=== PATIENT | female | born 1960 | race Caucasian/White ===

== ENCOUNTER 2025-01-07 22:32 | Emergency (ER) | payer MEDICARE, OTHER ==
[2025-01-07] MEDS ORDERED: Pantoprazole 40 MG VIAL ONE (22:44)
[2025-01-07] MEDS ORDERED: Ketorolac Tromethamine 30 MG (1 mL) VIAL ONE (22:44)
[2025-01-07 22:59] LABS: Bicarbonate (HCO3v) 24.6 mmol/L (22.0-28.0); CO2 Tension (PvCO2) 30.1 mmHg (42.0-51.0); Calcium, Ionized 1.21 mmol/L (1.15-1.33); Chloride 105 mmol/L (98-107); Hemoglobin - Calc 11.8 g/dL (12.0-16.0); Potassium 3.2 mmol/L (3.5-5.1); Sodium 141 mmol/L (138-145); T. Carbon Dioxide 25.5 mmol/L (22.0-28.0); vO2 Saturation-calc 70.8 % (60.0-85.0)
[2025-01-07 23:07] LABS: ALT (SGPT) 25 U/L (Less than 34); AST (SGOT) 25 U/L (11-34); Albumin 4.3 g/dL (3.1-4.5); Alkaline Phosphatase 87 U/L (40-110); Anion Gap 18 mmol/L (10-20); BUN (Urea Nitrogen) 26 mg/dL (9.8-20.1); Bilirubin, Total 0.7 mg/dL (0.3-1.2); Calc. Creatinine Clearance 0 mL/min (70-130); Calcium 10.1 mg/dL (7.8-10.44); Carbon Dioxide 23 mmol/L (23-31); Chloride 103 mmol/L (98-107); Globulin 2.6 g/dL (2.4-3.5); Glucose 185 mg/dL (80-115); Lipase 13 U/L (8-78); Potassium 3.3 mmol/L (3.5-5.1); Sodium 141 mmol/L (136-145)
[2025-01-08 00:41] LABS: Glucose, Urine (Dipstick) 500 mg/dL (Negative); Leukocyte Negative (Negative); Protein, Urine (Dipstick) Negative (Neg-Trace); Specific Gravity, Urine 1.020 (1.005-1.030)
[2025-01-08 00:43] LABS: Bacteria/HPF Rare-Few HPF (None Seen); CAUTI Indications for Culture Dysuria,urgency,freq; RBC/HPF 0-3 HPF (0-3); WBC/HPF 0-3 HPF (0-3)
[2025-01-08 00:44] LABS: Urine Culture Reflex No No
[2025-01-08 00:48] LABS: Cocaine Metabolite Screen Negative (Negative); THC/Cannabinoid Screen PRELIM POSITIVE (Negative); Tricyclic Screen Negative (Negative)
== END 2025-01-08 01:12 | disposition home or self-care (01) ==
LOC: NAV ERS 22:32
DX: R11.2 Nausea with vomiting, unspecified (principal); T40.715A Adverse effect of cannabis, initial encounter; E11.9 Type 2 diabetes mellitus without complications; I10 Essential (primary) hypertension
CPT/HCPCS: 80053; 80306; 81001; 82330; 82435; 82803; 83690; 84132; 84295; 85014; 96374; 96375; J1630; J1885; J2470